=== PATIENT | female | born 1980 | race Caucasian/White ===

== ENCOUNTER 2019-04-27 12:30 | Emergency (ER) | payer SELFPAY ==
[2019-04-27 12:43] VITALS: BP 105/71
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
== END 2019-04-27 13:19 | disposition home or self-care (01) ==
LOC: UCEAST 12:30
DX: J40 Bronchitis, not specified as acute or chronic (principal); J34.89 Other specified disorders of nose and nasal sinuses; F17.200 Nicotine dependence, unspecified, uncomplicated
CPT/HCPCS: 99202; G0463